=== PATIENT | male | born 1990 | race Caucasian/White ===

== ENCOUNTER 2016-09-22 17:59 | Emergency (ER) | payer BC, SELFPAY ==
[2016-09-22] MEDS ORDERED: KETOROLAC 30 MG/ML VIAL (J1885) As Ordered ONE (20:34)
[2016-09-22] MEDS ORDERED: NAPROXEN 250 MG TAB As Ordered ONE (20:38)
--- NOTE | 2016-09-22 22:43 | EDDOCDS ---
Nurse's Notes [facility] Name: Vishal Otoole Age: 25 yrs Sex: Male : 1990 Arrival Date: 09/22/2016 Time: 17:59 Bed PR2 Private MD: Other - Complete Info On Cds Diagnosis: Pleurisy;Chest pain on breathing Presentation: 09/22 18:05 Presenting complaint: Patient states: for a week or two- when takes a deep breath has srm chest pain that goes to back. increase in pain on exertion. hx of lyme disease ( didn't have blood work just had bulls eye rash). pain doesn't radiate to neck, jaw or arms. Aspirin was not taken prior to arrival. Adult Sepsis Screening: The patient does not have new or worsening altered mentation. Patient's respiratory rate is less than 22. Systolic blood pressure is greater than 100. Patient has a qSOFA score of 0- Negative Sepsis Screen. Suicide/Homicide risk assessment- the patient denies having any suicidal and/or homicidal ideations and does not present with any other emotional, behavioral or mental health complaints. Status: Patient is not a meat service team member or dependent. Transition of care: patient was not received from another setting of care. 18:05 Acuity: JUNE Level 3 srm 18:05 Method Of Arrival: Walkin/Carried/Asstd srm Triage Assessment: 18:08 General: Appears in no apparent distress, Behavior is appropriate for age, cooperative. srm Pain: Pain currently is 4 out of 10 on a pain scale. At worst was 7 out of 10 on a pain scale. Cardiovascular: Chest pain is described as Pain is 7 out of 10 on a pain scale. radiates Does not radiate. episodes are intermittent began 1-2 weeks ago. 18:09 HIV screening NA for this visit Offered previously. srm Historical: - Allergies: no known allergies; - Home Meds: 1. none - PMHx: none; - PSHx: left wrist; - Social history: Smoking status: Patient states was never smoker of tobacco. No barriers to communication noted, The patient speaks fluent Syriac, Speaks appropriately for age. - Family history: Not pertinent. - : The pt / caregiver states he / she is not on anticoagulants. Home medication list is obtained from the patient. - Exposure Risk Screening:: None identified. Screenin:39 Screening information is obtained from the patient. Fall risk: No risks identified. ld5 Assistance ADL's: requires no assistance with activities of daily living. Abuse/DV Screen: The patient / caregiver reports he/she is: not in a situation that causes fear, pain or injury. Nutritional screening: No deficits noted. Advance Directives: Currently, there is no health care proxy. home support is adequate. Assessment: 19:52 General: Appears in no apparent distress, Behavior is appropriate for age, cooperative. dsf Pain: Location: under left breast Pain currently is 4 out of 10 on a pain scale. Quality of pain is described as sharp, Pain began 1 week ago Aggravated by deep breathing. Neurological: Level of Consciousness is awake, alert, Oriented to person, place, time. Cardiovascular: Capillary refill < 3 seconds. Respiratory: Airway is patent Respiratory effort is even, unlabored, Respiratory pattern is regular, symmetrical, Reports pain with respiration Pain is 7 out of 10 on a pain scale. Derm: Skin is pink, warm & dry. 22:39 General: Appears in no apparent distress, Behavior is cooperative. Pain: Pain currently ld5 is 3 out of 10 on a pain scale. Neurological: Level of Consciousness is awake, alert. Respiratory: Airway is patent Respiratory effort is even, unlabored. 22:41 Cardiovascular: Rhythm is N/A. ld5 Vital Signs: 18:02 BP 148 / 75; Pulse 92; Resp 18 S; Temp 98.5(O); Pulse Ox 99% on R/A; Weight 99.79 kg gr2 (R); Height 5 ft. 11 in. (180.34 cm) (R); Pain 5/10; 22:39 BP 134 / 65; Pulse 77; Resp 18; Temp 98; Pulse Ox 95% on R/A; Pain 3/10; ld5 18:02 Body Mass Index 30.68 (99.79 kg, 180.34 cm) gr2 Vitals: 18:02 Log In Time: September 22, 2016 at 18:02. gr2 ED Course: 18:01 Patient visited by Amos Hawley. gr2 18:01 Other - Complete Info On Cds is Private Physician. gr2 18:01 Patient moved to Waiting gr2 18:02 Patient visited by Amos Hawley. gr2 18:02 Patient moved to Pre RCE gr2 18:08 Triage Initiated srm 18:14 Patient moved to PR2 / jrd 18:22 Patient visited by Aaron Gary PCA. jrd 18:22 EKG done. (by ED staff). Reviewed by James VILLALOBOS. jrd 18:23 Patient moved to Pre RCE jrd 19:51 Patient moved to Triage 2 dsf 19:53 Patient visited by Palma Lyons RN. dsf 20:18 [facility] le 20:22 Patient visited by Rosa Elena Hernandez FNP. le 20:22 Patient visited by Rosa Elena Hernandez FNP. le 20:25 Patient name changed from Vishal\Marielena\Mahesh\S\Sydnie\S\ to Vishal\S\Azam\S\Brookings. EDMS 20:27 [facility] Payment Agreement was scanned into [employer] and attached to record. gb 20:41 Patient moved to [address] 22:08 [facility] is Referral Physician. le 22:26 Patient moved to PR2 / dsf 22:39 The patient / caregiver is instructed regarding the plan of care and ED course. Patient ld5 has correct armband on for positive identification. Cardiac monitoring not applicable on this patient. 22:39 No IV's were initiated during this patient's visit. No procedures done that require ld5 assistance. 22:42 Patient visited by Stefania Aguero RN. ld5 Administered Medications: 20:38 CANCELLED (Other Intervention Used): ketorolac 60 mg IM once le 20:47 Drug: Naproxen 500 mg [naproxen 250 mg tablet (2 tabs)] Route: PO; ld5 Order Results: Lab Order: D-Dimer Quant; SPEC'M 09/22/16 20:41 Test: D-DIMER QUANT; Value: < 270.0; Range: <500; Units: ng/ml; Status: F Outcome: 22:09 Discharge ordered by Provider. le 22:39 Discharge Assessment: Patient awake, alert and oriented x 3. No cognitive and/or ld5 functional deficits noted. Patient verbalized understanding of disposition instructions. patient administered narcotics - no. The following High Risk Discharge criteria are identified: None. Discharged to home ambulatory. Condition: stable. Discharge instructions given to patient, significant other, Instructed on discharge instructions, follow up and referral plans. medication usage, Demonstrated understanding of instructions, medications, Pt was receptive of discharge instructions/ teaching. Prescriptions given X 1. No special radiology studies were completed. Property :Personal belongings accompany Pt. 22:41 Patient left the ED. ld5 Signatures: Dispatcher [employer] EDMS Mally Gray, RN RN srm Raven, Martita, Reg Reg gb Rosa Elena Hernandez, EDGER OPERATOR Stefania Payne RN RN ld5 Palma Lyons,RN RN Carolyn DumontRN RN [facility] Amos Hawley gr2 Aaron Gary, ZURI STACK CLERK jrd MTDD
--- NOTE | 2016-09-22 22:43 | EDDOCDS ---
Physician Documentation [facility] Name: Vishal Otoole Age: 25 yrs Sex: Male : 1990 Arrival Date: 09/22/2016 Time: 17:59 Bed PR Private MD: Other - Complete Info On Cds Disposition: 09/22 22:12 Critical Care: Critical care not applicable. le Disposition: 09/22/16 22:09 Discharged to Home/Self Care. Impression: Pleurisy, Chest pain on breathing. - Condition is Stable. - Discharge Instructions: Nonspecific Chest Pain, Pleurisy. - Prescriptions for Naprosyn 500 mg Oral Tablet - take 1 tablet by ORAL route 2 times per day take with food; 30 tablet. - Medication Reconciliation, Local Pharmacy Hours form. - Follow up: [facility]; When: Call to arrange an appointment; Reason: Recheck today's complaints, Continuance of care. - Problem is new. - Symptoms have improved. - Notes: Keep hydrated Return to the ED for worsening symptoms or other concerns Historical: - Allergies: no known allergies; - Home Meds: 1. none - PMHx: none; - PSHx: left wrist; - Social history: Smoking status: Patient states was never smoker of tobacco. No barriers to communication noted, The patient speaks fluent [place], Speaks appropriately for age. - Family history: Not pertinent. - : The pt / caregiver states he / she is not on anticoagulants. Home medication list is obtained from the patient. - Exposure Risk Screening:: None identified. Vital Signs: 18:02 BP 148 / 75; Pulse 92; Resp 18 S; Temp 98.5(O); Pulse Ox 99% on R/A; Weight 99.79 kg / gr2 220 lbs (R); Height 5 ft. 11 in. (180.34 cm) (R); Pain 5/10; 22:39 BP 134 / 65; Pulse 77; Resp 18; Temp 98; Pulse Ox 95% on R/A; Pain 3/10; ld5 18:02 Body Mass Index 30.68 (99.79 kg, 180.34 cm) gr2 MDM: 18:13 ECG WITH READING ER PHYS+CARDIAG ordered. EDMS 20:27 Financial registration complete. gb 20:27 [facility] Payment Agreement was scanned into [employer] and attached to record. gb 20:30 Misc Circulator Order ordered. le 20:30 Misc Circulator Order complete. ajs 20:31 D-Dimer Quant Ordered. EDMS 20:35 BARBRA EATON VIRUS AB, COMPREH Ordered. EDMS 20:38 Naproxen 500 mg PO once; administer with food or milk ordered. le 22:08 D-Dimer Quant Reviewed. le Administered Medications: 20:38 CANCELLED (Other Intervention Used): ketorolac 60 mg IM once le 20:47 Drug: Naproxen 500 mg [naproxen 250 mg tablet (2 tabs)] Route: PO; ld5 Signatures: Dispatcher [employer] EDMS Mally Gray, RN RN Martita Cash, Reg Reg Rosa Elena Ram, Stefania Ventura RN RN ld5 Jenn Vital The chart was reviewed and I authenticate all verbal orders and agree with the evaluation and treatment provided.Corrections: (The following items were deleted from the chart) 20:38 20:30 ketorolac 60 mg IM once ordered. le le 20:38 20:38 ketorolac 60 mg IM once ordered. le le Attachments: 20:27 [facility] [place] Agreement gb MTDD
--- NOTE | 2016-09-23 08:36 | ECGEPIP ---
Stationary ECG Study [facility] - ED Test Date: 2016-09-22 Pat Name: JESSICA SZYMANSKI Department: Room: - Gender: M Drier Take Off Tender: maxine : 1990 Requested By: ED Lee Order Number: [id number] Reading MD: Chica Blackwell Measurements Intervals [place] Rate: 83 P: 44 IN: 145 QRS: 7 QRSD: 101 T: 30 QT: 350 QTc: 412 Interpretive Statements SINUS RHYTHM MINIMAL VOLTAGE CRITERIA FOR LVH, CONSIDER NORMAL VARIANT NO PRIOR FOR COMPARISON Electronically Signed On 09-23-2016 8:36:21 EST by Chica Blackwell
--- NOTE | 2016-09-24 23:42 | EDDOCDS ---
Physician Documentation [facility] Name: Vishal Otoole Age: 25 yrs Sex: Male : 1990 Arrival Date: 09/22/2016 Time: 17:59 Bed PR Private MD: Other - Complete Info On Cds Disposition: 09/22 22:12 Critical Care: Critical care not applicable. le Disposition: 09/22/16 22:09 Discharged to Home/Self Care. Impression: Pleurisy, Chest pain on breathing. - Condition is Stable. - Discharge Instructions: Nonspecific Chest Pain, Pleurisy. - Prescriptions for Naprosyn 500 mg Oral Tablet - take 1 tablet by ORAL route 2 times per day take with food; 30 tablet. - Medication Reconciliation, Local Pharmacy Hours form. - Follow up: [facility]; When: Call to arrange an appointment; Reason: Recheck today's complaints, Continuance of care. - Problem is new. - Symptoms have improved. - Notes: Keep hydrated Return to the ED for worsening symptoms or other concerns Historical: - Allergies: no known allergies; - Home Meds: 1. none - PMHx: none; - PSHx: left wrist; - Social history: Smoking status: Patient states was never smoker of tobacco. No barriers to communication noted, The patient speaks fluent Ugandan, Speaks appropriately for age. - Family history: Not pertinent. - : The pt / caregiver states he / she is not on anticoagulants. Home medication list is obtained from the patient. - Exposure Risk Screening:: None identified. Vital Signs: 18:02 BP 148 / 75; Pulse 92; Resp 18 S; Temp 98.5(O); Pulse Ox 99% on R/A; Weight 99.79 kg / gr2 220 lbs (R); Height 5 ft. 11 in. (180.34 cm) (R); Pain 5/10; 22:39 BP 134 / 65; Pulse 77; Resp 18; Temp 98; Pulse Ox 95% on R/A; Pain 3/10; ld5 18:02 Body Mass Index 30.68 (99.79 kg, 180.34 cm) gr2 MDM: 18:13 ECG WITH READING ER PHYS+CARDIAG ordered. EDMS 20:27 Financial registration complete. gb 20:27 [facility] Payment Agreement was scanned into [employer] and attached to record. gb 20:30 Misc Bone Process Operator Order ordered. le 20:30 Misc Bone Process Operator Order complete. ajs 20:31 D-Dimer Quant Ordered. EDMS 20:35 BARBRA EATON VIRUS AB, COMPREH Ordered. EDMS 20:38 Naproxen 500 mg PO once; administer with food or milk ordered. le 22:08 D-Dimer Quant Reviewed. le 09/23 11:44 T-Sheet-- Draft Copy was scanned into [employer] and attached to record. gb 11:44 ECG/EKG was scanned into [employer] and attached to record. gb Administered Medications: 09/22 20:38 CANCELLED (Other Intervention Used): ketorolac 60 mg IM once le 20:47 Drug: Naproxen 500 mg [naproxen 250 mg tablet (2 tabs)] Route: PO; ld5 Signatures: Dispatcher [employer] EDMally Hemphill, RN RN srm Martita Carbajal, Reg Reg Rosa Elena Ram, BRICK AND TILE MAKING MACHINE OPERATOR BRICK AND TILE MAKING MACHINE OPERATOR Stefania Stearns RN RN ld5 Jenn Vital The chart was reviewed and I authenticate all verbal orders and agree with the evaluation and treatment provided.Corrections: (The following items were deleted from the chart) 20:38 20:30 ketorolac 60 mg IM once ordered. le le 20:38 20:38 ketorolac 60 mg IM once ordered. le le Attachments: 20:27 [facility] Payment Agreement gb 09/23 11:44 T-Sheet-- Draft Copy gb 11:44 ECG/EKG gb Chart Complete MTDD
--- NOTE | 2016-09-24 23:42 | EDDOCDS ---
Physician Documentation [facility] Name: Vishal Otoole Age: 25 yrs Sex: Male : 1990 Arrival Date: 09/22/2016 Time: 17:59 Bed PR Private MD: Other - Complete Info On Cds Disposition: 09/22 22:12 Critical Care: Critical care not applicable. le Disposition: 09/22/16 22:09 Discharged to Home/Self Care. Impression: Pleurisy, Chest pain on breathing. - Condition is Stable. - Discharge Instructions: Nonspecific Chest Pain, Pleurisy. - Prescriptions for Naprosyn 500 mg Oral Tablet - take 1 tablet by ORAL route 2 times per day take with food; 30 tablet. - Medication Reconciliation, Local Pharmacy Hours form. - Follow up: [facility]; When: Call to arrange an appointment; Reason: Recheck today's complaints, Continuance of care. - Problem is new. - Symptoms have improved. - Notes: Keep hydrated Return to the ED for worsening symptoms or other concerns Historical: - Allergies: no known allergies; - Home Meds: 1. none - PMHx: none; - PSHx: left wrist; - Social history: Smoking status: Patient states was never smoker of tobacco. No barriers to communication noted, The patient speaks fluent Egyptian, Speaks appropriately for age. - Family history: Not pertinent. - : The pt / caregiver states he / she is not on anticoagulants. Home medication list is obtained from the patient. - Exposure Risk Screening:: None identified. Vital Signs: 18:02 BP 148 / 75; Pulse 92; Resp 18 S; Temp 98.5(O); Pulse Ox 99% on R/A; Weight 99.79 kg / gr2 220 lbs (R); Height 5 ft. 11 in. (180.34 cm) (R); Pain 5/10; 22:39 BP 134 / 65; Pulse 77; Resp 18; Temp 98; Pulse Ox 95% on R/A; Pain 3/10; ld5 18:02 Body Mass Index 30.68 (99.79 kg, 180.34 cm) gr2 MDM: 18:13 ECG WITH READING ER PHYS+CARDIAG ordered. EDMS 20:27 Financial registration complete. gb 20:27 [facility]END[facility] Payment Agreement was scanned into [employer] and attached to record. gb 20:30 Misc Shrimp Peeler Order ordered. le 20:30 Misc Shrimp Peeler Order complete. ajs 20:31 D-Dimer Quant Ordered. EDMS 20:35 BARBRA EATON VIRUS AB, COMPREH Ordered. EDMS 20:38 Naproxen 500 mg PO once; administer with food or milk ordered. le 22:08 D-Dimer Quant Reviewed. le 09/23 11:44 T-Sheet-- Draft Copy was scanned into [employer] and attached to record. gb 11:44 ECG/EKG was scanned into [employer] and attached to record. gb Administered Medications: 09/22 20:38 CANCELLED (Other Intervention Used): ketorolac 60 mg IM once le 20:47 Drug: Naproxen 500 mg [naproxen 250 mg tablet (2 tabs)] Route: PO; ld5 Signatures: Dispatcher [employer] EDMally Hemphill, RN RN srm aMrtita Carbajal, Reg Reg Rosa Elena Rma, DISABILITY ADVOCATE DISABILITY ADVOCATE Stefania Stearns RN RN ld5 Jenn Vital The chart was reviewed and I authenticate all verbal orders and agree with the evaluation and treatment provided.Corrections: (The following items were deleted from the chart) 20:38 20:30 ketorolac 60 mg IM once ordered. le le 20:38 20:38 ketorolac 60 mg IM once ordered. le le Attachments: 20:27 [facility] Payment Agreement gb 09/23 11:44 T-Sheet-- Draft Copy gb 11:44 ECG/EKG gb Chart Complete MTDD
--- NOTE | 2016-09-24 23:42 | EDDOCDS ---
Nurse's Notes [facility] Name: Jessica Szymanski Age: 25 yrs Sex: Male : 1990 Arrival Date: 09/22/2016 Time: 17:59 Bed PR2 Private MD: Other - Complete Info On Cds Diagnosis: Pleurisy;Chest pain on breathing Presentation: 09/22 18:05 Presenting complaint: Patient states: for a week or two- when takes a deep breath has srm chest pain that goes to back. increase in pain on exertion. hx of lyme disease ( didn't have blood work just had bulls eye rash). pain doesn't radiate to neck, jaw or arms. Aspirin was not taken prior to arrival. Adult Sepsis Screening: The patient does not have new or worsening altered mentation. Patient's respiratory rate is less than 22. Systolic blood pressure is greater than 100. Patient has a qSOFA score of 0- Negative Sepsis Screen. Suicide/Homicide risk assessment- the patient denies having any suicidal and/or homicidal ideations and does not present with any other emotional, behavioral or mental health complaints. Status: Patient is not a tire service supervisor or dependent. Transition of care: patient was not received from another setting of care. 18:05 Acuity: JUNE Level 3 srm 18:05 Method Of Arrival: Walkin/Carried/Asstd srm Triage Assessment: 18:08 General: Appears in no apparent distress, Behavior is appropriate for age, cooperative. srm Pain: Pain currently is 4 out of 10 on a pain scale. At worst was 7 out of 10 on a pain scale. Cardiovascular: Chest pain is described as Pain is 7 out of 10 on a pain scale. radiates Does not radiate. episodes are intermittent began 1-2 weeks ago. 18:09 HIV screening NA for this visit Offered previously. srm Historical: - Allergies: no known allergies; - Home Meds: 1. none - PMHx: none; - PSHx: left wrist; - Social history: Smoking status: Patient states was never smoker of tobacco. No barriers to communication noted, The patient speaks fluent Georgian, Speaks appropriately for age. - Family history: Not pertinent. - : The pt / caregiver states he / she is not on anticoagulants. Home medication list is obtained from the patient. - Exposure Risk Screening:: None identified. Screenin:39 Screening information is obtained from the patient. Fall risk: No risks identified. ld5 Assistance ADL's: requires no assistance with activities of daily living. Abuse/DV Screen: The patient / caregiver reports he/she is: not in a situation that causes fear, pain or injury. Nutritional screening: No deficits noted. Advance Directives: Currently, there is no health care proxy. home support is adequate. Assessment: 19:52 General: Appears in no apparent distress, Behavior is appropriate for age, cooperative. dsf Pain: Location: under left breast Pain currently is 4 out of 10 on a pain scale. Quality of pain is described as sharp, Pain began 1 week ago Aggravated by deep breathing. Neurological: Level of Consciousness is awake, alert, Oriented to person, place, time. Cardiovascular: Capillary refill < 3 seconds. Respiratory: Airway is patent Respiratory effort is even, unlabored, Respiratory pattern is regular, symmetrical, Reports pain with respiration Pain is 7 out of 10 on a pain scale. Derm: Skin is pink, warm & dry. 22:39 General: Appears in no apparent distress, Behavior is cooperative. Pain: Pain currently ld5 is 3 out of 10 on a pain scale. Neurological: Level of Consciousness is awake, alert. Respiratory: Airway is patent Respiratory effort is even, unlabored. 22:41 Cardiovascular: Rhythm is N/A. ld5 Vital Signs: 18:02 BP 148 / 75; Pulse 92; Resp 18 S; Temp 98.5(O); Pulse Ox 99% on R/A; Weight 99.79 kg gr2 (R); Height 5 ft. 11 in. (180.34 cm) (R); Pain 5/10; 22:39 BP 134 / 65; Pulse 77; Resp 18; Temp 98; Pulse Ox 95% on R/A; Pain 3/10; ld5 18:02 Body Mass Index 30.68 (99.79 kg, 180.34 cm) gr2 Vitals: 18:02 Log In Time: September 22, 2016 at 18:02. gr2 ED Course: 18:01 Patient visited by Amos Hawley. gr2 18:01 Other - Complete Info On Cds is Private Physician. gr2 18:01 Patient moved to Waiting gr2 18:02 Patient visited by Amos Hawley. gr2 18:02 Patient moved to Pre RCE gr2 18:08 Triage Initiated srm 18:14 Patient moved to PR2 / jrd 18:22 Patient visited by Aaron Gary PCA. jrd 18:22 EKG done. (by ED staff). Reviewed by James VILLALOBOS. jrd 18:23 Patient moved to Pre RCE jrd 19:51 Patient moved to Triage 2 dsf 19:53 Patient visited by Palma Lyons RN. dsf 20:18 [facility] le 20:22 Patient visited by Rosa Elena Hernandez FNP. le 20:22 Patient visited by Rosa Elena Hernandez FNP. le 20:25 Patient name changed from Jessica\Marielena\Mahesh\S\Sydnie\S\ to Jessica\S\Azam\S\Jones. EDMS 20:27 [facility] [place] Agreement was scanned into [employer] and attached to record. gb 20:41 Patient moved to [address] 22:08 [facility] is Referral Physician. le 22:26 Patient moved to PR2 / dsf 22:39 The patient / caregiver is instructed regarding the plan of care and ED course. Patient ld5 has correct armband on for positive identification. Cardiac monitoring not applicable on this patient. 22:39 No IV's were initiated during this patient's visit. No procedures done that require ld5 assistance. 22:42 Patient visited by Stefania Aguero RN. ld5 09/23 08:57 EKG-ADULT Returned. EDMS 11:44 T-Sheet-- Draft Copy was scanned into [employer] and attached to record. gb 11:44 ECG/EKG was scanned into [employer] and attached to record. gb Administered Medications: 09/22 20:38 CANCELLED (Other Intervention Used): ketorolac 60 mg IM once le 20:47 Drug: Naproxen 500 mg [naproxen 250 mg tablet (2 tabs)] Route: PO; ld5 Order Results: Lab Order: D-Dimer Quant; SPEC'M 09/22/16 20:41 Test: D-DIMER QUANT; Value: < 270.0; Range: <500; Units: ng/ml; Status: F Radiology Order: EKG-ADULT Test: EKG-ADULT REASON FOR EXAMINATION: Chest Pain; Stationary ECG Study; [facility] ED; ; Test Date: 2016-09-22; Pat Name: JESSICA SZYMANSKI Department:; Room: -; Gender: M Senior Planner: maxine; : 1990 Requested By: ED Lee; Order Number: [id number] Reading MD: Chica Blackwell; Measurements; Intervals [place]; Rate: 83 P: 44; [place]: 145 QRS: 7; QRSD: 101 T: 30; QT: 350; QTc: 412; Interpretive Statements; SINUS RHYTHM; MINIMAL VOLTAGE CRITERIA FOR LVH, CONSIDER NORMAL VARIANT; NO PRIOR FOR COMPARISON; Electronically Signed On 09-23-2016 8:36:21 EST by Chica Blackwell; Outcome: 22:09 Discharge ordered by Provider. le 22:39 Discharge Assessment: Patient awake, alert and oriented x 3. No cognitive and/or ld5 functional deficits noted. Patient verbalized understanding of disposition instructions. patient administered narcotics - no. The following High Risk Discharge criteria are identified: None. Discharged to home ambulatory. Condition: stable. Discharge instructions given to patient, significant other, Instructed on discharge instructions, follow up and referral plans. medication usage, Demonstrated understanding of instructions, medications, Pt was receptive of discharge instructions/ teaching. Prescriptions given X 1. No special radiology studies were completed. Property :Personal belongings accompany Pt. 22:41 Patient left the ED. ld5 Signatures: Dispatcher [employer] EDMS Mally Gray RN RN [facility] Martita Carbajal, Reg Reg gb Rosa Elena Hernandez, BOX TRUCK OWNER OPERATOR BOX TRUCK OWNER OPERATOR Stefania Stearns RN RN ld5 Palma Lyons RN RN dsf Hafner, Jane, RN RN cjh Raymond, [place] 2 Aaron Gary PCA PRODUCTION SAMPLER jrd Chart Complete MTDD
== END 2016-09-22 22:41 | disposition home or self-care (01) ==
LOC: M ED 17:59
DX: R09.1 Pleurisy (principal); R07.9 Chest pain, unspecified
CPT/HCPCS: 36415; 85379; 86663; 86664; 86665; 93005; 99284; J1885

== ENCOUNTER 2024-05-01 19:52 | Emergency (ER) | payer BC, SELFPAY ==
[~2024-05-01] VITALS: Ht 177.8 cm; Wt 104.3 kg
[2024-05-01 20:31] LABS: BASO % 0.3 % (0.0-1.0); EOS # 0.2 10^3/uL (0.0-0.5); EOS % 1.6 % (0.0-3.0); HEMATOCRIT 41.1 % (42.0-52.0); HEMOGLOBIN 14.2 g/dl (13.5-17.5); LYMPH # 4.5 10^3/uL (1.5-5.0); LYMPH % 37.6 % (24.0-44.0); MEAN CORPUSCULAR HEMOGLOBIN 28.8 pg (27.0-33.0); MEAN CORPUSCULAR HGB CONC 34.5 g/dl (32.0-36.5); MEAN CORPUSCULAR VOLUME 83.4 fl (80.0-96.0); MONO # 0.8 10^3/uL (0.0-0.8); MONO % 6.6 % (2.0-8.0); NEUTROPHILS # 6.4 10^3/uL (1.5-8.5); NEUTROPHILS % 53.4 % (36.0-66.0); PLATELET COUNT, AUTOMATED 267 10^3/uL (150-450); RED BLOOD COUNT 4.93 10^6/uL (4.30-6.10); WHITE BLOOD COUNT 11.9 10^3/uL (4.0-10.0)
[2024-05-01 20:59] LABS: LIPASE 31 U/L (12-53)
[2024-05-01 21:01] LABS: ALKALINE PHOSPHATASE 62 U/L (46-116); ALT/SGPT 22 U/L (7.0-40); AST/SGOT 14 U/L (<34); BILIRUBIN,DIRECT 0.1 MG/DL (<0.4); BILIRUBIN,TOTAL 0.3 MG/DL (0.3-1.2); BLOOD UREA NITROGEN 20 MG/DL (9-23); CALCIUM LEVEL 10.1 MG/DL (8.5-10.1); CARBON DIOXIDE LEVEL 25 MMOL/L (20-31); CHLORIDE LEVEL 108 MMOL/L (98-107); CK-MB VALUE MASS < 1.0 NG/ML (<3.6); CPK CREATINE PHOSPHOKINASE 145 U/L (46-171); CREATININE FOR GFR 1.07 MG/DL (0.70-1.30); GLOMERULAR FILTRATION RATE > 60.0 (>60); GLUCOSE, FASTING 106 MG/DL (60-100); MB/CK RELATIVE INDEX 0.68 (< OR =4); POTASSIUM SERUM 3.9 MMOL/L (3.5-5.1); SODIUM LEVEL 140 MMOL/L (136-145); TOTAL PROTEIN 6.8 G/DL (5.7-8.2)
[2024-05-01] MEDS ORDERED: LISI5TAB11 PO (21:28)
[2024-05-01] MEDS ORDERED: MONT-5 PO (21:31)
[2024-05-01] MEDS: lisinopriL 5 MG TAB PO ONE (21:35)
[2024-05-01] MEDS: MAALOX 30 ML SUSP *UDC PO ONE (22:28)
[2024-05-01 23:00] VITALS: BP 124/69; O2SAT 97
[2024-05-01 23:09] VITALS: TEMP 97.9
[2024-05-01] MEDS ORDERED: PROT1TAB2 PO (23:13)
[2024-05-01] MEDS ORDERED: CARA1TAB6 PO (23:13)
== END 2024-05-01 23:20 | disposition home or self-care (01) ==
LOC: M ED 19:52
DX: R55 Syncope and collapse (principal); K29.70 Gastritis, unspecified, without bleeding; F41.9 Anxiety disorder, unspecified; I10 Essential (primary) hypertension; J30.2 Other seasonal allergic rhinitis; Z88.6 Allergy status to analgesic agent

== ENCOUNTER → 2024-09-18 | Outpatient (CLI) | payer BC ==
[~2024-09-18] MED LIST: CARA1TAB6 PO; LISI5TAB11 PO; MONT-5 PO; PROT1TAB2 PO
== END ==
LOC: M SLEEP HO 12:03
PROVIDERS: ATTEND Internal Medicine Pulmonary Disease
DX: R06.83 Snoring (principal)

== ENCOUNTER → 2024-10-31 | Outpatient (CLI) | payer BC ==
[~2024-10-31] MED LIST changes: +METHACHOLINE KIT (6 VIAL.NEB PREMIX) INH ONE
== END ==
LOC: M CARPUL 09:03
PROVIDERS: ATTEND Internal Medicine Pulmonary Disease
DX: R06.00 Dyspnea, unspecified (principal)
CPT/HCPCS: 94070; J7674